=== PATIENT | male | born 1970 | race Caucasian/White ===

== ENCOUNTER 2016-09-16 21:42 | Emergency (ER) | payer BC ==
[2016-09-16 21:53] VITALS: BP 142/91
--- NOTE | 2016-09-16 22:17 | UC ---
Eye Complaint HPI - HPI Summary HPI Summary: RUBBED HIS EYES AROUND 3PM TODAY BUT DIDN'T REALIZE HE HAD ANTIFREEZE ON HIS FINGERS. THINKS SOME MAY HAVE GOTTEN INTO HIS EYES. SHORTLY AFTER RUBBING HIS EYES THEY STARTED BURNING, LEFT > RIGHT. USE EYEWASH KIT X 2. NOW HAS GELATINOUS SUBSTANCE COVERING CONJUNCTIVA LEFT EYE. NO PAIN. NO VISUAL DISTURBANCE. NO FEVER. - History of Current Complaint Chief Complaint: UCEye Stated Complaint: EYE COMPLAINT Time Seen by Provider: 09/16/16 22:00 Hx Obtained From: Patient Onset/Duration: Sudden Onset, Lasting Hours, Still Present - BUT BETTER Timing: Constant Severity Initially: Moderate Severity Currently: Moderate Pain Intensity: 0 Pain Scale Used: 0-10 Numeric Location of Injury: Conjunctiva Aggravating Factor(s): Nothing Alleviating Factor(s): Eye Drops Associated Signs And Symptoms: Positive: Drainage (Clear). Negative: Photophobia, Vision Impairment Bilateral, Vision Impairment Right, Vision Impairment Left, Fever - Allergies/Home Medications Allergies/Adverse Reactions: Allergies Allergy/AdvReac Type Severity Reaction Status Date / Time Aspirin Allergy Unknown Verified 09/16/16 21:55 Reaction Details Penicillins Allergy Unknown Verified 09/16/16 21:55 Reaction Details Home Medications: Home Medications Albuterol Sulfate [Proair Respiclick] 2 PO PRN 09/16/16 [History] PMH/Surg Hx/FS Hx/Imm Hx Respiratory History Of: Reports: Asthma - Surgical History Surgical History: Yes Surgery Procedure, Year, and Place: appy as a child - Family History Known Family History: Negative: Hypertension - Social History Alcohol Use: Rare Substance Use Type: None Smoking Status (MU): Never Smoked Tobacco Review of Systems Constitutional: Negative Eyes: Other - SWOLLEN CONJUNCTIVA Respiratory: Negative Cardiovascular: Negative Gastrointestinal: Negative All Other Systems Reviewed And Are Negative: Yes Physical Exam Triage Information Reviewed: Yes Appearance: Well-Appearing, No Pain Distress, Well-Nourished Vital Signs: Initial Vital Signs Temp 98.6 F 09/16/16 21:50 Pulse 80 09/16/16 21:50 Resp 18 09/16/16 21:50 BP 142/91 09/16/16 21:50 Pulse Ox 98 09/16/16 21:50 Vital Signs Reviewed: Yes Eyes: Positive: Other: - LEFT CONJUNCTIVA SWOLLEN. PERRL, EOMI. ENT: Positive: Hearing grossly normal Neck: Positive: Supple Respiratory: Positive: No respiratory distress, No accessory muscle use Cardiovascular: Positive: Pulses Normal Abdomen Description: Positive: Soft Musculoskeletal: Positive: No Edema Neurological: Positive: Alert Psychological: Positive: Age Appropriate Behavior Skin: Negative: rashes Eye Complaint Course/Dx - Course Course Of Treatment: POISON CONTROL CONTACTED. ADVISED THAT IT IS AN IRRITANT. NO FURTHER ACUTE TREATMENT NEEDED IF PT ASYMPTOMATIC. - Differential Dx/Diagnosis Provider Diagnoses: CHEMOSIS LEFT EYE Discharge - Discharge Plan Condition: Stable Disposition: HOME Referrals: Demetri Perdomo MD [Primary Care Provider] - If Needed Indra De La Fuente MD [Medical Doctor] - 3 Days Additional Instructions: Chemosis is a collection of serous fluid within the substance of the conjunctiva and is a nonspecific sign of conjunctival irritation. USE OTC SINGLE USE SALINE EYE FLUSHES NEEDED FOR LUBRICATION. TAKE AN ANTIHISTMAINE LIKE CLARITIN DAILY IN CASE THERE IS AN ALLERGIC COMPONENT. TAKE IBUPROFEN TO HELP WITH DISCOMFORT AND INFLAMMATION. USE COOL COMPRESSES. GO TO THE ER WITHOUT FAIL OVER THE WEEKEND IF YOUR SYMPTOMS WORSEN. CALL ON MONDAY MORNING FOR A FOLLOW-UP WITH DR. DE LA FUENTE (EYE DOCTOR) IF YOUR SYMPTOMS ARE PERSISTENT.
== END 2016-09-16 22:30 | disposition home or self-care (01) ==
LOC: UCEAST 21:42
DX: H11.422 Conjunctival edema, left eye (principal); J45.909 Unspecified asthma, uncomplicated; Z88.6 Allergy status to analgesic agent; Z88.0 Allergy status to penicillin
CPT/HCPCS: 99212; G0463

== ENCOUNTER 2017-02-14 08:29 | Emergency (ER) | payer BC ==
[2017-02-14 08:42] VITALS: BP 119/81
--- NOTE | 2017-03-06 09:06 | UC ---
Dennis Maradiaga Angela, scribed for Ela Castillo MD on 02/14/17 at 0843 . General HPI - HPI Summary HPI Summary: This pt is a 47 y/o male presenting to [facility] c/o cough and is here for a refill of his inhaler. He states he had a productive cough yesterday but today is non- productive. Pt notes he was mowing his lawn yesterday and this aggravated his URI symptoms, today c/o allergy symptoms, including itchy eyes, sneezing. He does not take any allergy medications. Pt reports that he uses his inhaler intermittently when needed. Additionally pt notes rosacea on his nose. Pt denies any rash or fever. He is allergic to ASA and penicillin. - History of Current Complaint Stated Complaint: MED REFILL Time Seen by Provider: 02/14/17 08:35 Hx Obtained From: Patient Onset/Duration: Lasting Days Associated Signs & Symptoms: Positive: Cough, Other - itchy eyes and nose. Negative: Abdominal Pain, Back Pain, Fever, Headache, Vomiting, Wheezing - Allergy/Home Medications Allergies/Adverse Reactions: Allergies Allergy/AdvReac Type Severity Reaction Status Date / Time Aspirin Allergy Unknown Verified 02/14/17 08:37 Reaction Details Penicillins Allergy Unknown Verified 02/14/17 08:37 Reaction Details PMH/Surg Hx/FS Hx/Imm Hx Other Endocrine History: DENIES: Diabetes Other Cardiovascular History: DENIES: HTN Respiratory History: Asthma - Surgical History Surgical History: Yes Surgery Procedure, Year, and Place: appy as a child - Family History Known Family History: Negative: Hypertension - Social History Alcohol Use: Rare Substance Use Type: None Smoking Status (MU): Never Smoked Tobacco Review of Systems Constitutional: Negative Skin: Other - rosacea on face Eyes: Other - itchy eyes ENT: Negative Respiratory: Cough Cardiovascular: Negative Gastrointestinal: Negative Genitourinary: Negative Motor: Negative Neurovascular: Negative Musculoskeletal: Negative Neurological: Negative Psychological: Negative All Other Systems Reviewed And Are Negative: Yes Physical Exam Triage Information Reviewed: Yes Appearance: Well-Nourished Vital Signs: Initial Vitals Temp Pulse Resp BP Pulse Ox 97.6 F 76 16 119/81 97 02/14/17 08:39 02/14/17 08:39 02/14/17 08:39 02/14/17 08:39 02/14/17 08:39 Vital Signs Reviewed: Yes Eye Exam: Normal ENT Exam: Normal Neck: Positive: Supple, Nontender, No Lymphadenopathy Respiratory: Positive: Chest non-tender, Wheezing Cardiovascular Exam: Normal Cardiovascular: Positive: RRR, No Murmur, Pulses Normal, Brisk Capillary Refill Abdominal Exam: Normal Abdomen Description: Positive: Nontender, No Organomegaly, Soft Bowel Sounds: Positive: Present Musculoskeletal Exam: Normal Musculoskeletal: Positive: Strength Intact Neurological Exam: Normal - non focal, grossly intact Psychological Exam: Normal - conversing easily and appropriately Skin Exam: Normal - no visible or reported rash Course/Dx - Course Course Of Treatment: BP noted, 119/81. F/u pcp. Avoid decongestants. Antihistamines otc ok per package instructions. Refill albuterol. Questions answered as posed to the best of my ability. - Differential Dx - Multi-Symptom Provider Diagnoses: reactive airways with wheezing Discharge - Discharge Plan Condition: Stable Disposition: HOME Prescriptions: Albuterol HFA INHALER* [Ventolin HFA Inhaler*] 1 - 2 puff INH Q6H PRN #1 mdi PRN Reason: Wheezing Patient Education Materials: Antihistamine (By mouth), Allergies (ED), Wheezing (ED) Referrals: [facility] PHYSICIAN REFERRAL [Outside] Demetri Perdomo MD [Primary Care Provider] - Additional Instructions: Follow up with a primary care physician, routine appointment, when able. Recommend within four weeks. BP today 119/81. Seek medical attention for any problems, worse or new symptoms. The documentation as recorded by the Dennis leal Angela accurately reflects the service I personally performed and the decisions made by me, Ela Castillo MD.
== END 2017-02-14 08:53 | disposition home or self-care (01) ==
LOC: UCEAST 08:29
DX: J45.909 Unspecified asthma, uncomplicated (principal); R05 Cough; Z76.0 Encounter for issue of repeat prescription; L71.9 Rosacea, unspecified; H57.8 Other specified disorders of eye and adnexa; Z88.6 Allergy status to analgesic agent; Z88.0 Allergy status to penicillin
CPT/HCPCS: 99212; G0463

== ENCOUNTER 2017-10-17 10:20 | Emergency (ER) | payer BC ==
[2017-10-17 10:31] VITALS: BP 125/83
[2017-10-17] MEDS ORDERED: DOXYcycline CAP(*) 100 MG PO ONE (11:24)
--- NOTE | 2017-10-17 11:29 | UC ---
Hannah Maradiaga Rebecca, scribed for Adriane Don MD on 10/17/17 at 1120 . Skin Complaint HPI - HPI Summary HPI Summary: Pt is a 47 y/o M who presents to [facility] due to a tick bite. Pt noticed the tick about 1 hour [employer] [facility] at Urgent Care and is located in the right lower abdomen. Tick is still present and alive upon arrival. On triage, there was no associated pain. Confirms that he has been outside recently, working on tearing down a house. Has previously removed a tick himself. Pt did not attempt to remove this tick. Last Tetanus shot was about 1 year ago, in [place]. Pt's medications reviewed this visit - History of Current Complaint Chief Complaint: [facility] Time Seen by Provider: 10/17/17 10:37 Stated Complaint: TICK BITE Hx Obtained From: Patient Onset/Duration: Lasting Hours, Still Present Current Severity: None Pain Intensity: 0 Pain Scale Used: 0-10 Numeric Location: Other - Right lower abdomen Aggravating Factor(s): Nothing Alleviating Factor(s): Nothing Associated Signs & Symptoms: Positive: Negative Related History: Insect Bite/Sting - Tick bite - Allergy/Home Medications Allergies/Adverse Reactions: Allergies Allergy/AdvReac Type Severity Reaction Status Date / Time aspirin Allergy hive/asthma Verified 10/17/17 10:34 Penicillins Allergy hives sob Verified 10/17/17 10:34 Review of Systems Constitutional: Negative Skin: Other - Tick bite Eyes: Negative ENT: Negative Respiratory: Negative Cardiovascular: Negative Gastrointestinal: Negative Genitourinary: Negative Motor: Negative Neurovascular: Negative Musculoskeletal: Negative Neurological: Negative Psychological: Negative All Other Systems Reviewed And Are Negative: Yes PMH/Surg Hx/FS Hx/Imm Hx - Additional Past Medical History Additional PMH: NEGATIVE: DM, HTN Previously Healthy: Yes Respiratory History: Asthma - Surgical History Surgical History: Yes Surgery Procedure, Year, and Place: appy as a child - Family History Known Family History: Negative: Hypertension - Social History Occupation: Employed Part-time Lives: With Family Alcohol Use: Rare Substance Use Type: None Smoking Status (MU): Never Smoked Tobacco Physical Exam Triage Information Reviewed: Yes Appearance: Well-Appearing, No Pain Distress, Well-Nourished Vital Signs: Initial Vital Signs Temp 98 F 10/17/17 10:29 Pulse 73 10/17/17 10:29 Resp 16 10/17/17 10:29 BP 125/83 10/17/17 10:29 Pulse Ox 100 10/17/17 10:29 Vital Signs Reviewed: Yes Eyes: Positive: Conjunctiva Clear ENT: Positive: Hearing grossly normal Dental Exam: Normal Neck: Positive: Supple, Nontender, No Lymphadenopathy Respiratory: Positive: No respiratory distress, No accessory muscle use Cardiovascular: Positive: Brisk Capillary Refill Abdomen Description: Positive: Nontender, Soft, Bruit Bowel Sounds: Positive: Present Musculoskeletal Exam: Normal Neurological Exam: Normal Neurological: Positive: Alert Psychological Exam: Normal - Pt with tick non engorged on right lower abdomend mild cicumferential erythema non tender Psychological: Positive: Normal Response To Family Course/Dx - Course Course Of Treatment: Discussed CDC recomendations. The pt is requesting prophylaxis. Will give one time dose of Doxy. removed tick using tick twister. Tick removed intact, alive. no apparent retained parts. reviewed with pt s/ s infection. wound care. return precuations. Patient's medications reviewed this visit. - Diagnoses Provider Diagnoses: Tick bite Discharge - Sign-Out/Discharge Documenting (check all that apply): Discharge/Admit/Transfer - Discharge - Discharge Plan Condition: Stable Disposition: HOME Patient Education Materials: Tick Bite (ED) Referrals: Demetri Perdomo MD [Primary Care Provider] - Additional Instructions: Keep area clean and dry Check yourself daily for ticks after you have been working in the [place] Contact your doctor or return with questions or concerns Approach to prophylaxis : According to the Infectious Diseases Society of [place] (IDSA) guidelines that recommend antibiotic prophylaxis only in patients who meet all of the following criteria: 1. Attached tick identified as an adult or nymphal I. scapularis tick (deer tick). 2. Tick is estimated to have been attached for 36 hours (by degree of engorgement or time of exposure). 3. Prophylaxis is begun within 72 hours of tick removal. If you experience a tick and time of attachment is believed to be less than 36 hours, you may remove the tick with head intact and no need for prophylaxis. If over 36 hours, please come into UC. AFter discussion with your care provider today you were given the one time treatment dose. - Billing Disposition and Condition Condition: STABLE Disposition: HOME The documentation as recorded by the Hannah leal Rebecca accurately reflects the service I personally performed and the decisions made by me, Adriane Don MD.
== END 2017-10-17 11:35 | disposition home or self-care (01) ==
LOC: UCEAST 10:20
DX: S30.861A Insect bite (nonvenomous) of abdominal wall, initial encounter (principal); W57.XXXA Bitten or stung by nonvenomous insect and other nonvenomous arthropods, initial encounter; Y93.H3 Activity, building and construction; Y92.9 Unspecified place or not applicable; J45.909 Unspecified asthma, uncomplicated; Z88.6 Allergy status to analgesic agent; Z88.0 Allergy status to penicillin
CPT/HCPCS: 99212; A9270-GY; G0463